=== PATIENT | female | born 1970 | race American Indian/Alaskan Native ===

== ENCOUNTER 2017-04-15 15:56 | Emergency (ER) | payer MEDICAID ==
[2017-04-15 15:56] VITALS: BMI 21.6
[2017-04-15 16:04] VITALS: BP 107/71; PULSE 90; RESP 16; TEMP 97.8; O2SAT 100
[2017-04-15 16:52] LABS: BASO # 0.1 K/uL (0.0-0.2); BASO % 0.8 % (0.0-2.0); EOS # 0.1 K/uL (0.0-0.7); EOS % 1.9 % (0.0-4.0); HEMOGLOBIN 12.2 g/dL (12.0-16.0); LYMPH # 1.7 K/uL (1.0-4.3); LYMPH % 26.3 % (20.0-40.0); MEAN CELL VOLUME 91.8 fl (81.0-99.0); MEAN CORPUSCULAR HEMOGLOBIN 30.7 pg (27.0-31.0); MEAN CORPUSCULAR HGB CONC 33.5 g/dL (33.0-37.0); MEAN PLATELET VOLUME 9.8 fl (7.2-11.7); MONO # 0.4 K/uL (0.0-0.8); MONO % 6.6 % (0.0-10.0); NEUT # 4.2 K/uL (1.8-7.0); NEUT % 64.4 % (50.0-75.0); RBC 3.96 Mil/uL (3.80-5.20); RED CELL DISTRIBUTION WIDTH 13.4 % (11.5-14.5); WHITE BLOOD COUNT 6.5 K/uL (4.8-10.8)
[2017-04-15 17:08] LABS: ALB/GLOB RATIO 1.2 (1.0-2.1); ALBUMIN 4.6 g/dL (3.5-5.0); ALT/SGPT 19 U/L (9-52); AST/SGOT 39 U/L (14-36); BLOOD UREA NITROGEN 20 mg/dl (7-17); CALCIUM 9.6 mg/dL (8.4-10.2); GFR AFRICAN-AMERICAN > 60; GFR NON-AFRICAN AMERICAN > 60
--- NOTE | 2017-04-15 17:09 | ED PDOC ---
Lower Extremity Pain/Injury Time Seen by Provider: 04/15/17 16:06 Chief Complaint (Nursing): Lower Extremity Problem/Injury Chief Complaint (Provider): Right knee/leg pain and swelling History Per: Patient History/Exam Limitations: no limitations Onset/Duration Of Symptoms: Days (x 1 week) Current Symptoms Are (Timing): Still Present Additional Complaint(s): Elizabeth Sanford is a 46 year old female with a past medical history of multiple sclerosis, who presents to the emergency department complaining of 1 week of pain and swelling to the right knee and leg. States symptoms began after getting up from kneeling on her right knee. Denies any direct injury or trauma. No fever, chest pain, shortness of breath, or history of prior DVT or Pulmonary Embolism. Of note, patient is wheelchair bound due to history of MS. PMD: Arthur Jeffrye Past Medical History Reviewed: Historical Data, Nursing Documentation, Vital Signs Vital Signs: Last Vital Signs Temp 97.8 F 04/15/17 16:01 Pulse 90 04/15/17 16:01 Resp 16 04/15/17 16:01 BP 107/71 04/15/17 16:01 Pulse Ox 100 04/15/17 16:01 - Medical History PMH: Fibromyalgia, Multiple Sclerosis - Surgical History Surgical History: Cholecystectomy (x3) - Family History Family History: States: Unknown Family Hx - Social History Current smoker - smoking cessation education provided: No Alcohol: None Drugs: Denies - Home Medications Home Medications: Ambulatory Orders Medication Instructions Recorded DULoxetine [Cymbalta] 60 mg PO DAILY 06/02/15 Fingolimod HCl [Gilenya] 0.5 mg PO DAILY 06/02/15 Gabapentin [Neurontin] 300 mg PO HS 06/02/15 Lactulose [Generlac] 30 ml PO HS 06/02/15 Meloxicam [Mobic] 15 mg PO DAILY 06/02/15 Spironolactone [Aldactone] 25 mg PO DAILY 06/02/15 Ibuprofen [Motrin] 600 mg PO Q6 #20 tab 04/15/17 - Allergies Allergies/Adverse Reactions: Allergies Allergy/AdvReac Type Severity Reaction Status Date / Time No Known Allergies Allergy Verified 09/06/15 23:04 Review of Systems ROS Statement: Except As Marked, All Systems Reviewed And Found Negative Constitutional: Negative for: Fever Cardiovascular: Negative for: Chest Pain Respiratory: Negative for: Shortness of Breath Musculoskeletal: Positive for: Leg Pain (right knee/leg pain and swelling) Physical Exam - Reviewed Nursing Documentation Reviewed: Yes Vital Signs Reviewed: Yes - Physical Exam Appears: Positive for: Well, Non-toxic, No Acute Distress Head Exam: Positive for: ATRAUMATIC, NORMOCEPHALIC Skin: Positive for: Normal Color, Warm, Dry Eye Exam: Positive for: EOMI, Normal appearance, PERRL Neck: Positive for: Normal, Painless ROM, Supple Cardiovascular/Chest: Positive for: Regular Rate, Rhythm. Negative for: Murmur Respiratory: Positive for: Normal Breath Sounds. Negative for: Accessory Muscle Use, Respiratory Distress Extremity: Positive for: Swelling (right lower leg is edematous, with mild swelling of the right knee. No pitting edema, warmth or erythema.), Other ( Limited ROM secondary to pain). Negative for: Normal ROM Neurologic/Psych: Positive for: Alert, Oriented (x3) - Laboratory Results Result Diagrams: 04/15/17 16:44 04/15/17 16:44 - ECG O2 Sat by Pulse Oximetry: 100 (RA) Pulse Ox Interpretation: Normal - Progress ED Course And Treament: Upon further questioning, pt's sister states she lifted pt. up from bed but then accidentally fell down. States she caught the pt. and knee "grazed the floor" but pt. did not fall to the floor. Knee x-ray: no fx or bony abnormality Duplex RLE vein: no DVT R knee CT w/o contrast ordered. Medical Decision Making Medical Decision Making: Time: 16:13 Initial Plan: --B-type natriuretic peptide --CMP --HCG, Qualitative --CBC w/ differential --ESR --C-reactive Protein --Urinalysis --Chest x-ray --X-Ray Right Knee --US Duplex Lower Extremity Vein, Right --Reevaluation Scribe Attestation: Documented by Stephie Collins, acting as a scribe for Daniel Tony PA-C Provider Scribe Attestation: All medical record entries made by the Scribe were at my direction and personally dictated by me. I have reviewed the chart and agree that the record accurately reflects my personal performance of the history, physical exam, medical decision making, and the department course for this patient. I have also personally directed, reviewed, and agree with the discharge instructions and disposition. Disposition - Clinical Impression Clinical Impression: Knee pain - Patient ED Disposition Is Patient to be Admitted: Transfer of Care (Signed out to Denise WHITE pending CT report and final disposition.) - Disposition Referrals: Louis Arteaga MD [Staff Provider] - Disposition: Routine/Home Disposition Time: 18:00 Condition: STABLE Prescriptions: Ibuprofen [Motrin] 600 mg PO Q6 #20 tab Instructions: Swollen Knee Joint (ED), Knee Pain (ED) Forms: [employer] ([place])
[2017-04-15 17:15] LABS: B-TYPE NATRIURETIC PEPTIDE 208 pg/ml (0-450)
--- NOTE | 2017-04-15 17:32 | US ---
PROCEDURE: Right lower extremity venous duplex Doppler. HISTORY: pain COMPARISON: None available. TECHNIQUE: Common femoral, superficial femoral, popliteal and posterior tibial veins were evaluated. Flow was assessed with color Doppler, compressibility, assessment of phasic flow and augmentation response. FINDINGS: COMMON FEMORAL VEIN: Unremarkable. SUPERFICIAL FEMORAL VEIN: Unremarkable. POPLITEAL VEIN: Unremarkable. POSTERIOR TIBIAL VEIN: Unremarkable. OTHER FINDINGS: None. IMPRESSION: No evidence of deep venous thrombosis in the right lower extremity.
--- NOTE | 2017-04-15 18:14 | RAD ---
HISTORY: leg swelling COMPARISON: Chest radiograph dated 06/02/2015. FINDINGS: LUNGS: No active pulmonary disease. PLEURA: No significant pleural effusion identified, no pneumothorax apparent. CARDIOVASCULAR: Normal. OSSEOUS STRUCTURES: No significant abnormalities. VISUALIZED UPPER ABDOMEN: Normal. OTHER FINDINGS: None. IMPRESSION: No active disease.
--- NOTE | 2017-04-15 18:15 | RAD ---
PROCEDURE: Right Knee Radiographs. HISTORY: pain COMPARISON: None. FINDINGS: BONES: No acute fracture. JOINTS: Unremarkable. JOINT EFFUSION: None. OTHER FINDINGS: None. IMPRESSION: No demonstrated fracture or dislocation.
--- NOTE | 2017-04-15 18:31 | ED PDOC ---
- Laboratory Results Result Diagrams: 04/15/17 16:44 04/15/17 16:44 - ECG O2 Sat by Pulse Oximetry: 100 (RA) Medical Decision Making Medical Decision Making: Case endorsed to parts data writer from CINDY Tony at [address] scan resulted negative Results discussed with pt who demonstrated full understanding. RICE therapy advised and pt given ortho follow up Disposition - Clinical Impression Clinical Impression: Knee pain - POA Present On Arrival: None - Disposition Referrals: Louis Arteaga MD [Staff Provider] - Disposition: Routine/Home Disposition Time: 19:46 Condition: STABLE Prescriptions: Ibuprofen [Motrin] 600 mg PO Q6 #20 tab Instructions: Knee Pain (ED), Swollen Knee Joint (ED) Forms: [employer] (Mongolian)
--- NOTE | 2017-04-15 18:46 | CT ---
EXAM: CT Right Lower Extremity Without Intravenous Contrast, Knee CLINICAL HISTORY: 46 years old, female; Pain; Knee; Right; Additional info: Pain and swelling TECHNIQUE: Axial computed tomography images of the right knee without intravenous contrast. All CT scans at this facility use one or more dose reduction techniques, viz.: automated exposure control; ma/kV adjustment per patient size (including targeted exams where dose is matched to indication; i.e. head); or iterative reconstruction technique. Coronal and sagittal reformatted images were created and reviewed. COMPARISON: CR - KNEE 3 VIEWS RT 2017-04-15 17:30 FINDINGS: Bones/joints: Unremarkable. No acute fracture. No dislocation. Soft tissues: Regional soft tissue edema. IMPRESSION: No acute osseous abnormality.
== END 2017-04-15 19:16 | disposition home or self-care (01) ==
LOC: H.ER 15:56
DX: G35 Multiple sclerosis (principal); M79.7 Fibromyalgia